=== PATIENT | female | born 1965 | race Caucasian/White ===

== ENCOUNTER → 2021-10-13 | Outpatient (CLI) | payer OTHER ==
[~2021-10-13] MED LIST: STOMUL PO; Vitamin B IM
== END ==
LOC: LAB SHORT 13:46 → LAB 13:46
DX: R22.0 Localized swelling, mass and lump, head (principal); L85.8 Other specified epidermal thickening
CPT/HCPCS: 88305

== ENCOUNTER 2022-12-02 06:15 | Day surgery (SDC) | payer OTHER ==
[~2022-12-02] VITALS: Ht 165.1 cm; Wt 80.6 kg
--- NOTE | 2022-12-02 08:33 | NUR ---
12/02/22 0833 Shannon Banks HEAD ON DONUT, PILLOW UNDER KNEES, RIGHT ARM TUCKED, LEFT ARM SECURED ON PADDED ARM BOARD.
--- NOTE | 2022-12-02 09:28 | NUR ---
12/02/22 0928 Falguni Padilla PATIENT UP IN RECLINER. TOLERATING COFFEE AND COOKIES WITHOUT ANY NAUSEA. DENIES PAIN OTHER THAN 2/10 SORE THROAT. C/O FEELING A LITTLE DROWSY.
== END 2022-12-02 10:12 | disposition home or self-care (01) ==
LOC: ORSCSDS 06:15
PROVIDERS: Surgery
PROC: 0JB00ZX Excision of Scalp Subcutaneous Tissue and Fascia, Open Approach, Diagnostic (ICD-10-PCS; principal; 2022-12-02 08:15)
DX: L85.8 Other specified epidermal thickening (principal); B07.9 Viral wart, unspecified
CPT/HCPCS: 88305; A9270; J0171; J1100; J2001; J2250; J2405; J2704; J2795; J3010; J7120

== ENCOUNTER 2025-09-03 10:46 | Day surgery (SDC) | payer OTHER ==
[~2025-09-03] VITALS: Ht 165.1 cm; Wt 83.6 kg
[2025-09-03] MEDS ORDERED: ATEN50 PO (11:21)
[2025-09-03] MEDS ORDERED: Crestor40 MG PO (11:22)
[2025-09-03] MEDS ORDERED: LISI5 PO (11:23)
[2025-09-03 14:32] VITALS: BP 126/69
== END 2025-09-03 13:15 | disposition home or self-care (01) ==
LOC: ORSCSDS 10:46
PROVIDERS: Internal Medicine Gastroenterology
PROC: 0DBH8ZX Excision of Cecum, Via Natural or Artificial Opening Endoscopic, Diagnostic (ICD-10-PCS; principal; 2025-09-03 12:15)
DX: Z09 Encounter for follow-up examination after completed treatment for conditions other than malignant neoplasm (principal); Z86.0101 Personal history of adenomatous and serrated colon polyps; Z83.719 Family history of colon polyps, unspecified; Z80.0 Family history of malignant neoplasm of digestive organs; I10 Essential (primary) hypertension; E78.5 Hyperlipidemia, unspecified; E66.9 Obesity, unspecified; Z68.32 Body mass index [BMI] 32.0-32.9, adult; Z79.899 Other long term (current) drug therapy
CPT/HCPCS: 88305; J2704; J7120